=== PATIENT | male | born 1955 | race Caucasian/White ===

== ENCOUNTER 2022-05-12 09:46 | Day surgery (SDC) | payer OTHER, BC ==
--- NOTE | 2022-05-11 11:50 | EKG ---
Test Date: 2022-05-11 Test Time: 09:09:32 Assistant Controller: CHRISTINE MEASUREMENT RESULTS: Intervals: Rate: 68 NH: 200 QRSD: 86 QT: 384 QTc: 408 [place]: P: 36 NH: 200 QRS: 25 T: 66 INTERPRETIVE STATEMENTS: Normal sinus rhythm Normal ECG No previous ECG available for comparison Electronically Signed On 05-11-22 11:50:41 [employer] by Gabriel Colbert
[2022-05-12] MEDS ORDERED: Ringers Lactate 0 ML IV ONE (10:11)
[2022-05-12] MEDS ORDERED: LIDOCAINE 1% W/EPI 1:100,000 50 ML MDV ONE (11:16)
[2022-05-12] MEDS ORDERED: Ringers Lactate 1,000 ML IV ONE (11:21)
[2022-05-12] MEDS ORDERED: LIDOCAINE 2% MPF 5 ML VIAL ONE (11:24)
[2022-05-12] MEDS ORDERED: FENTANYL CITR 100 MCG/2 ML ONE (11:24)
[2022-05-12] MEDS ORDERED: MIDAZOLAM HCL 2 MG/2 ML INJ ONE (11:24)
[2022-05-12] MEDS ORDERED: propofoL 200 MG/20 ML VIAL IV ONE (11:24)
[2022-05-12] MEDS ORDERED: KETOROLAC 30 MG/ML INJ ONE (11:59)
[2022-05-12] MEDS ORDERED: ONDANSETRON 4 MG/2 ML VIAL ONE (12:18)
[2022-05-12] MEDS ORDERED: NS 0.9% VIAL 10 ML ONE (12:18)
[2022-05-12] MEDS ORDERED: EPHEDRINE SULF 50 MG/ML VIAL ONE (12:18)
[2022-05-12 13:52] VITALS: BP 110/63; TEMP 97.6; O2SAT 94
--- NOTE | 2022-05-12 15:08 | P.OP ---
[employer] Field Agent: NONE,NONE Preoperative diagnosis: basal cell carcinoma, nose Postoperative diagnosis: same
--- NOTE | 2022-05-12 15:34 | P.OP ---
Strip Winder: NONE,NONE Preoperative diagnosis: Basal cell carcinoma, nose Postoperative diagnosis: Same Primary procedure: Wide local excision with frozen section and intermediate/layered closure Anesthesia: General Estimated blood loss: 5 mL Specimen: Nose, frozen section. Suture lerner 12:00/superior Findings: Negative margins on frozen section Operative Technique: Patient was brought to the operating room. He was placed under general anesthesia via LMA. The planned incision/prior biopsy site was inspected. There was a depressed scar on the dorsum of the nose just right of midline. The area was cleaned with alcohol and injected with 3 mL of 1% lidocaine with epinephrine. The face was then prepped with ophthalmic Betadine and draped in a sterile fashion. The biopsy site was examined and there was concern for a rim of prominent tissue suggestive of gross tumor. An additional 2 mm margin of skin was included and designed around the site. A 15 blade scalpel was used to incise full-thickness through the skin with sharp elevation from underlying tissues. A suture was placed at the superiormost aspect indicating 12:00 and the specimen was sent to pathology for frozen section analysis. The surgical defect measured 1.0 x 1.1 cm. Bleeding at the base and margins of the site was controlled with electrocauterization. While awaiting pathology results, the surrounding tissues were widely undermined approximately 1 cm and reconstruction options were considered. There was enough skin laxity to bring the medial and lateral edges together. 2 deep Vicryl sutures were placed in order to reduce tension and improve closure. Once the pathologist confirmed all margins were negative, a burrows triangle was excised at the superior and inferior aspect of the ovoid excision in order to improve closure. A single horizontal mattress 4- 0 Prolene suture was placed near the midpoint where the most tension was noted. The incision was then closed in a running fashion using 4-0 Prolene suture. The area was cleaned and dried. There was no additional bleeding. The incision was dressed with antibacterial ointment. The patient was returned to care of anesthesia for awakening extubation in the operating room which proceeded without difficulty. The patient will be discharged home later today in the care of his family and follow-up with Dr. Connor in 10 days for suture removal routine wound care including cleaning with soap and water and application of antibiotic ointment was discussed with the patient. Complications: None Implants: None Fluids & blood products: See anesthesia record Transferred to: Recovery Room (None) Condition: Good
== END 2022-05-12 14:10 | disposition home or self-care (01) ==
LOC: OR 09:46
PROVIDERS: ATTEND Otolaryngology
PROC: 0HB1XZZ Excision of Face Skin, External Approach (ICD-10-PCS; principal; 2022-05-12 11:45)
DX: C44.311 Basal cell carcinoma of skin of nose (principal)
CPT/HCPCS: 93005; 88331; 88332; 88305; 11642; J2704; J2001; J2250; J3010; A4216; J7120; J2405